=== PATIENT | male | born 1955 | race Caucasian/White ===

== ENCOUNTER 2018-10-26 06:26 | Day surgery (SDC) | payer OTHER, MEDICAID, MEDICARE ==
[2018-10-26] MEDS ORDERED: PROPOFOL 40 ML (07:38)
[2018-10-26] MEDS ORDERED: FENTAnyl 50 MCG/ML VIAL IV ×2 (08:00)
== END 2018-10-26 10:27 | disposition home or self-care (01) ==
LOC: GIL 06:26
DX: Z12.11 Encounter for screening for malignant neoplasm of colon (principal); K29.30 Chronic superficial gastritis without bleeding; K21.0 Gastro-esophageal reflux disease with esophagitis; K26.9 Duodenal ulcer, unspecified as acute or chronic, without hemorrhage or perforation; D12.4 Benign neoplasm of descending colon; K57.31 Diverticulosis of large intestine without perforation or abscess with bleeding; K64.8 Other hemorrhoids; I10 Essential (primary) hypertension; E78.5 Hyperlipidemia, unspecified; E66.9 Obesity, unspecified; Z68.31 Body mass index [BMI] 31.0-31.9, adult
CPT/HCPCS: 43239; 88305; 88312; 88313